=== PATIENT | female | born 1955 | race Caucasian/White ===

== ENCOUNTER → 2016-06-10 | Outpatient (CLI) | payer BC ==
[~2016-06-10] MED LIST: REGADENOSON 0.4 MG/5 ML SYRINGE ONE
== END | disposition home or self-care (01) ==
LOC: CFH 06:37
PROVIDERS: ATTEND Internal Medicine Cardiovascular Disease
DX: I34.0 Nonrheumatic mitral (valve) insufficiency (principal); I07.1 Rheumatic tricuspid insufficiency; I37.1 Nonrheumatic pulmonary valve insufficiency; I35.8 Other nonrheumatic aortic valve disorders; I25.10 Atherosclerotic heart disease of native coronary artery without angina pectoris; I10 Essential (primary) hypertension; I48.91 Unspecified atrial fibrillation; R53.83 Other fatigue
CPT/HCPCS: 78452; 93017; 93306; A9502; J2785

== ENCOUNTER 2017-02-06 10:01 | Day surgery (SDC) | payer BC ==
[~2017-02-06] VITALS: Ht 162.6 cm; Wt 95.3 kg
[2017-02-06 10:37] VITALS: BP 157/89
[2017-02-06] MEDS ORDERED: LOSA50TA6 PO (10:37)
[2017-02-06] MEDS ORDERED: OMEP40CA6 PO (10:37)
[2017-02-06] MEDS ORDERED: FLEC100T PO (10:37)
[2017-02-06] MEDS ORDERED: ATOR40TA78 PO (10:37)
[2017-02-06] MEDS ORDERED: CEFAZOLIN PMX 1GM/50ML 50 ML IV ONE (11:00)
[2017-02-06] MEDS ORDERED: SODIUM CHLORIDE 0.9% 1,000 ML IV ONE (11:00)
[2017-02-06] MEDS ORDERED: LIDOCAINE 2%, 20ML ONE ×2 (11:41)
[2017-02-06] MEDS ORDERED: FENTANYL PF 100 MCG/2ML ONE ×2 (11:51)
[2017-02-06] MEDS ORDERED: NALOXONE 1 MG/ML, 2ML ONE (11:51)
[2017-02-06] MEDS ORDERED: MIDAZOLAM 1 MG/ML, 5ML ONE (11:51)
[2017-02-06] MEDS ORDERED: FLUMAZENIL 0.1 MG/1 ML, 5ML ONE (11:51)
== END 2017-02-06 14:30 ==
LOC: OUT 10:01
PROVIDERS: ATTEND Internal Medicine Hematology & Oncology
DX: Z45.2 Encounter for adjustment and management of vascular access device (principal); D46.9 Myelodysplastic syndrome, unspecified; I10 Essential (primary) hypertension; E78.00 Pure hypercholesterolemia, unspecified; Z88.6 Allergy status to analgesic agent; Z88.5 Allergy status to narcotic agent; Z95.5 Presence of coronary angioplasty implant and graft; Z98.890 Other specified postprocedural states; Z87.891 Personal history of nicotine dependence
CPT/HCPCS: 36561; 76937; 77001; 99156; 99157; C1788; J0690; J1642; J2250; J3010; J3490; J7030; J2310

== ENCOUNTER → 2017-02-27 | Outpatient (CLI) | payer BC ==
[~2017-02-27] MED LIST changes: +ATOR40TA78 PO; +FLEC100T PO; +LOSA50TA6 PO; +OMEP40CA6 PO; -REGADENOSON 0.4 MG/5 ML SYRINGE ONE
== END | disposition home or self-care (01) ==
LOC: CFH 10:19
PROVIDERS: ATTEND Internal Medicine Hematology & Oncology
DX: I70.0 Atherosclerosis of aorta (principal); M47.899 Other spondylosis, site unspecified; D46.9 Myelodysplastic syndrome, unspecified
CPT/HCPCS: 71020

== ENCOUNTER → 2017-02-28 | Outpatient (CLI) | payer BC | END | disposition home or self-care (01) | LOC: RAD 09:15 | PROVIDERS: ATTEND Nurse Practitioner Family | DX: R10.9 Unspecified abdominal pain (principal); K76.0 Fatty (change of) liver, not elsewhere classified; N13.30 Unspecified hydronephrosis | CPT/HCPCS: 76700 ==

== ENCOUNTER 2017-03-07 06:35 | Emergency (ER) | payer BC ==
[~2017-03-07] VITALS: Ht 162.6 cm; Wt 97.5 kg
[2017-03-07] MEDS ORDERED: SODIUM CHLORIDE 0.9% 1,000 ML IV ONE (06:55)
[2017-03-07] MEDS ORDERED: L.E.T SOLUTION TP ONE ×2 (06:59→07:00)
[2017-03-07] MEDS ORDERED: SODIUM CHLORIDE FLUSH 10ML SYR IVF ONE (07:00)
[2017-03-07] MEDS ORDERED: ONDANSETRON 2MG/ML, 2ML IVPush ONE (07:00)
[2017-03-07] MEDS ORDERED: MORPHINE SULFATE 4 MG/ML, 1ML ONE ×2 (07:36→08:34)
[2017-03-07] MEDS ORDERED: ONDANSETRON 2MG/ML, 2ML ONE (07:37)
[2017-03-07] MEDS: MORPHINE SULFATE 4 MG/ML, 1ML IVPush PRN ×2 (07:40→08:38)
[2017-03-07 07:47] LABS: ASPARTATE AMINO TRANSFERASE 24 U/L (15-37); BLOOD UREA NITROGEN 11 mg/dL (7-18)
[2017-03-07 08:04] LABS: IS PT STATUS REG ER OR PRE ER? YES
[2017-03-07 08:06] LABS: HEMATOCRIT 28.5 % (34.6-47.8); HEMOGLOBIN 9.4 g/dL (11.7-16.4)
[2017-03-07 08:08] LABS: WHITE BLOOD COUNT 0.8 x10^3/uL (3.4-10)
[2017-03-07] MEDS ORDERED: OMNIPAQUE 350 MG/ML, 100ML BOTTLE ONE (08:54)
[2017-03-07 10:20] VITALS: BP 136/78
== END 2017-03-07 10:38 | disposition home or self-care (01) ==
LOC: ED 08:01
DX: D70.9 Neutropenia, unspecified (principal); I10 Essential (primary) hypertension; Z85.9 Personal history of malignant neoplasm, unspecified
CPT/HCPCS: 36415; 71275; 74177; 80053; 81003; 83605; 83690; 84484; 85025; 93005; 96361; 96374; 96375; 96376; 99285; J2405; J7030; Q9967

== ENCOUNTER 2017-10-04 06:12 | Day surgery (SDC) | payer BC ==
[~2017-10-04] VITALS: Ht 162.6 cm; Wt 95.5 kg
[~2017-10-04 06:12] MED LIST changes: +ACYC-57 PO; +AMOX875T PO; +PROM25TA10 PO; +VENE100T PO
[2017-10-04 06:45] VITALS: BP 143/84
[2017-10-04] MEDS ORDERED: SODIUM CHLORIDE 0.9% 1,000 ML IV SCH (06:47)
[2017-10-04 07:24] LABS: MEAN CORPUSCULAR HEMOGLOBIN 35.4 pg (27.0-34.8); MEAN CORPUSCULAR VOLUME 104.2 fL (80-100); MEAN PLATELET VOLUME 6.9 fL (7.4-10.4); PLATELET COUNT 188 x10^3/uL (130-400); RED CELL DISTRIBUTION WIDTH 21.3 % (9.6-15.2)
[2017-10-04] MEDS ORDERED: FENTANYL PF 100 MCG/2ML ONE ×2 (07:50)
[2017-10-04] MEDS ORDERED: MIDAZOLAM 1 MG/ML, 5ML ONE (07:51)
[2017-10-04] MEDS ORDERED: FLUMAZENIL 0.1 MG/1 ML, 5ML ONE (07:51)
[2017-10-04] MEDS ORDERED: NALOXONE 1 MG/ML, 2ML ONE (07:51)
[2017-10-04] MEDS ORDERED: LIDOCAINE-MPF 2% ,5ML ONE (07:52)
[2017-10-04 08:34] LABS: BASOPHILS # (AUTO) 0.01 x10^3/uL (0-0.1); BASOPHILS % (AUTO) 0 % (0-1); EOSINOPHILS % (AUTO) 0 % (1-7); LYMPHOCYTES # (AUTO) 0.97 x10^3/uL (1-3.4); LYMPHOCYTES % (AUTO) 39 % (22-44); MD SCAN; MONOCYTES % (AUTO) 16 % (2-9); NEUTROPHILS # (AUTO) 1.08 x10^3/uL (1.8-6.8); NEUTROPHILS % (AUTO) 44 % (42-75)
== END 2017-10-04 09:55 ==
LOC: OUT 06:12
PROVIDERS: ATTEND Internal Medicine Hematology & Oncology
DX: D46.9 Myelodysplastic syndrome, unspecified (principal); D70.1 Agranulocytosis secondary to cancer chemotherapy; I10 Essential (primary) hypertension; I48.91 Unspecified atrial fibrillation; E78.00 Pure hypercholesterolemia, unspecified; Z95.5 Presence of coronary angioplasty implant and graft; Z98.890 Other specified postprocedural states; Z85.3 Personal history of malignant neoplasm of breast; Z87.891 Personal history of nicotine dependence; I25.10 Atherosclerotic heart disease of native coronary artery without angina pectoris
CPT/HCPCS: 36415; 38222; 77012; 85025; 85060; 85097; 88237; 88264; 88280; 88305; 88311; 88313; 99156; 99157; J2250; J3010; J3490; J2310